=== PATIENT | female | born 2000 | race Caucasian/White ===

== ENCOUNTER 2019-02-27 05:55 | Observation (INO) | payer OTHER ==
[~2019-02-27] VITALS: Ht 170.2 cm; Wt 87.1 kg
[~2019-02-27 05:55] MED LIST: MEDICAL NOTE
[2019-02-27 06:15] VITALS: BP 101/54; PULSE 62; RESP 18
[2019-02-27 06:24] VITALS: Ht 170.2 cm; Wt 87.1 kg
[2019-02-27] MEDS ORDERED: SOD CHLORIDE 0.9% 1,000 ML IV SCH (06:54)
[2019-02-27] MEDS ORDERED: DOCUSATE SODIUM 100 MG CAP PO PRN (07:00)
[2019-02-27] MEDS ORDERED: ONDANSETRON 4 MG INJ IV PRN (07:00)
[2019-02-27] MEDS ORDERED: NACL 0.9% 3 ML SYG IV SCH (07:00)
[2019-02-27] MEDS ORDERED: ACETAMINOPHEN 325 MG TAB PO PRN (07:00)
[2019-02-27] MEDS ORDERED: BISACODYL (EC) 5 MG TAB PO PRN (07:00)
[2019-02-27] MEDS ORDERED: HYOSCYAMINE 0.125 MG SUBL TAB PO PRN (07:30)
[2019-02-27 08:44] VITALS: BP 103/53; PULSE 61; RESP 18
== END 2019-02-27 11:17 | disposition home or self-care (01) ==
LOC: PP2 05:59 → INTOOBSV 05:59
PROVIDERS: ADMIT Family Medicine; ATTEND Family Medicine
DX: K80.50 Calculus of bile duct without cholangitis or cholecystitis without obstruction (principal)
CPT/HCPCS: 80048; 80061; 80076; 83036; 83735; 84443; 84703; 85025; 85610; 85730; 87081; J7030; Z7500; 99217; G0378